=== PATIENT | female | born 1940 | race Caucasian/White ===

== ENCOUNTER 2025-01-22 22:15 | Emergency (ER) | payer MEDICARE ==
[~2025-01-22] VITALS: Ht 157.5 cm; Wt 62.0 kg
[2025-01-22 22:21] VITALS: O2SAT 97
[2025-01-22 22:27] VITALS: BP 116/50; PULSE 88; RESP 18; TEMP 36.7; O2SAT 98
[2025-01-22 23:02] VITALS: TEMP 98
[2025-01-22] MEDS: ACETAMINOPHEN 325MG TABLET PO ONE (23:02)
[2025-01-22] MEDS ORDERED: LIDOCAINE HCL 1% 20ML VIAL INFIL ONE (23:15)
[2025-01-23 00:38] LABS: BASOPHILS % 0.6 % (0.0-2.0); EOSINOPHILS % 1.4 % (0.0-5.0); HEMATOCRIT. 30.6 % (36.0-48.0); HEMOGLOBIN. 9.7 g/dL (12.0-16.0); LYMPHOCYTES % 16.2 % (20.0-50.0); MEAN PLATELET VOLUME 6.6 fl (7.4-10.4); MONOCYTES % 6.3 % (2.0-8.0); NEUTROPHILS % 75.5 % (40.0-76.0); PLATELET 453 x1000/uL (130-400); RED BLOOD CELL COUNT 3.67 mill/uL (4.2-5.4); RED CELL DISTRIBUTION WIDTH 16.6 % (11.6-14.6)
[2025-01-23 00:54] LABS: CREATININE 0.9 mg/dL (0.6-1.0); TROPONIN I HIGH SENSITIVITY < 4 ng/L (3.0-34); UREA NITROGEN BLOOD 19.0 mg/dL (9-23)
== END 2025-01-23 01:38 | disposition left against medical advice (07) ==
LOC: ER 22:15 → CMPBEDREQ 01-23 07:22
DX: S01.01XA Laceration without foreign body of scalp, initial encounter (principal); R55 Syncope and collapse; I10 Essential (primary) hypertension; D64.9 Anemia, unspecified; E78.00 Pure hypercholesterolemia, unspecified; W19.XXXA Unspecified fall, initial encounter; Y93.89 Activity, other specified; Y92.89 Other specified places as the place of occurrence of the external cause; Y99.8 Other external cause status
CPT/HCPCS: 12002; 36415; 71045; 80048; 84484; 85025; 93005; 99285; J2003